=== PATIENT | male | born 1980 | race Caucasian/White ===

== ENCOUNTER → 2017-02-07 | Outpatient (CLI) | payer MEDICARE, MEDICAID ==
[~2017-02-07] MED LIST: IBUP800T PO; MELO-190 PO
[2017-02-07 13:18] LABS: HIV 1&2 ANTIBODY SCREEN Nonreactive (Nonreactive); HIV-1 p24 ANTIGEN Nonreactive (Nonreactive)
== END | disposition home or self-care (01) ==
LOC: STAR 12:05
PROVIDERS: ATTEND Orthopaedic Surgery
DX: M16.12 Unilateral primary osteoarthritis, left hip (principal); R79.89 Other specified abnormal findings of blood chemistry; R79.1 Abnormal coagulation profile
CPT/HCPCS: 36415; 83036; 85610; 85730; 86703; 87081; 87899; G0435

== ENCOUNTER 2017-02-11 07:51 | Inpatient (IN) | payer MEDICARE, MEDICAID ==
[~2017-02-11] VITALS: Ht 190.5 cm; Wt 85.4 kg
[~2017-02-11 07:51] MED LIST changes: +EPINEPHRINE 1 MG/ML, 1ML ONE; +KETOROLAC 60 MG/2 ML ONE; +ROPIvacaine/PF 0.2%, 20 ML ONE; +SODIUM CHLORIDE 0.9% 50 ML ONE; +TRANEXAMIC ACID 100 MG/ML, 10ML ONE; +VANCOMYCIN 1,000 MG ONE
[2017-02-11] MEDS ORDERED: VANCOMYCIN PER PHARMACY MC ONE (08:14)
[2017-02-11] MEDS ORDERED: GABAPENTIN 300 MG CAPSULE PO STA (08:14)
[2017-02-11] MEDS ORDERED: ACETAMINOPHEN 500 MG TABLET PO STA (08:14)
[2017-02-11] MEDS ORDERED: OxyconTIN ER 10 MG TAB.ER PO STA (08:21)
[2017-02-11 08:27] LABS: DAU SCREEN DISCLAIMER
[2017-02-11] MEDS ORDERED: VANCOMYCIN 1,500 MG in SODIUM CHLORIDE 0.9% 250 ML IV ONE (08:30)
[2017-02-11] MEDS ORDERED: LACTATED RINGERS 1,000 ML IV SCH (08:41)
[2017-02-11 08:47] VITALS: BP 114/74
[2017-02-11] MEDS ORDERED: ACETAMINOPHEN 500 MG TABLET ONE (08:57)
[2017-02-11] MEDS ORDERED: GABAPENTIN 300 MG CAPSULE ONE (08:58)
[2017-02-11] MEDS ORDERED: OXYcodone 5 MG/5 ML ORAL.SOL UDC PO PRN (09:00)
[2017-02-11] MEDS ORDERED: HYDROmorphone 1 MG/ML, 1ML IV PRN ×2 (09:00→10:30)
[2017-02-11] MEDS ORDERED: PROMETHAZINE 25 MG/ML, 1ML IV PRN (09:00)
[2017-02-11] MEDS ORDERED: FENTANYL PF 100 MCG/2ML IV PRN (09:00)
[2017-02-11] MEDS ORDERED: hydrALAzine 20 MG/ML, 1ML IV PRN (09:00)
[2017-02-11] MEDS ORDERED: MEPERIDINE/PF 25MG/0.5ML IVPush PRN (09:00)
[2017-02-11] MEDS ORDERED: MIDAZOLAM 1 MG/ML, 2ML IV PRN (09:00)
[2017-02-11] MEDS ORDERED: ONDANSETRON 2MG/ML, 2ML IVPush PRN (09:00)
[2017-02-11] MEDS ORDERED: LABETALOL 5MG/ML, 20ML IV PRN (09:00)
[2017-02-11] MEDS ORDERED: METOCLOPRAMIDE 5 MG/ML, 2ML ONE (10:03)
[2017-02-11] MEDS ORDERED: PROPOFOL 10 MG/ML, 50ML ONE (10:03)
[2017-02-11] MEDS ORDERED: ONDANSETRON 2MG/ML, 2ML ONE (10:03)
[2017-02-11] MEDS ORDERED: DEXAMETHASONE 4 MG/ML, 1ML ONE (10:03)
[2017-02-11] MEDS ORDERED: CEFAZOLIN 1,000 MG ONE (10:03)
[2017-02-11] MEDS ORDERED: ONDANSETRON 4 MG TABLET PO PRN (10:30)
[2017-02-11] MEDS ORDERED: ALUMINUM/MAG/SIMETHICONE 30 ML UDC PO PRN (10:30)
[2017-02-11] MEDS ORDERED: DIAZEPAM 5 MG TABLET PO PRN (10:30)
[2017-02-11] MEDS ORDERED: ONDANSETRON 2MG/ML, 2ML IV PRN (10:30)
[2017-02-11] MEDS ORDERED: DIPHENHYDRAMINE 50 MG CAPSULE PO PRN (10:30)
[2017-02-11] MEDS ORDERED: BISACODYL 10 MG SUPP PR PRN (10:30)
[2017-02-11] MEDS ORDERED: ACETAMINOPHEN 650 MG/20.3 ML UDC PO PRN (10:30)
[2017-02-11] MEDS ORDERED: SENNA/DOCUSATE TABLET PO PRN (10:30)
[2017-02-11] MEDS ORDERED: MAGNESIUM HYDROXIDE 8%, 30ML UDC PO PRN (10:30)
[2017-02-11] MEDS ORDERED: TRANEXAMIC ACID 100 MG/ML, 10ML ONE (12:12)
[2017-02-11] MEDS ORDERED: OXYcodone 5 MG/5 ML ORAL.SOL UDC ONE (12:30)
[2017-02-11 13:50] VITALS: BP 99/62
[2017-02-11] MEDS ORDERED: SCOPOLAMINE PATCH, 1.5MG PATCH.TD72 TD SCH (14:00)
[2017-02-11] MEDS: D5%-0.45NACL+KCL 20MEQ 1,000 ML IV SCH (14:57)
[2017-02-11] MEDS: CEFAZOLIN PMX 1GM/50ML 50 ML IVPB SCH ×2 (14:57→21:54)
[2017-02-11] MEDS: OXYcodone IR 5MG TABLET PO PRN ×2 (16:20→21:25)
[2017-02-11 18:58] VITALS: BP 100/55
[2017-02-11] MEDS ORDERED: VANCOMYCIN PMX 1GM/200ML 200 ML IVPB SCH (20:00)
[2017-02-11] MEDS: DOCUSATE 100 MG CAPSULE PO SCH (20:14)
[2017-02-12 00:07] VITALS: BP 101/53
[2017-02-12] MEDS: OXYcodone IR 5MG TABLET PO PRN ×3 (01:56→12:53)
[2017-02-12 03:54] VITALS: BP 113/57
[2017-02-12 05:20] LABS: HEMATOCRIT 38.6 % (39.2-51.8); HEMOGLOBIN 12.6 g/dL (13.7-18.0)
[2017-02-12] MEDS ORDERED: ASPIRIN 81 MG TABLET EC PO SCH (06:00)
[2017-02-12] MEDS ORDERED: DEXAMETHASONE 4 MG/ML, 1ML IVPush SCH (06:00)
[2017-02-12 07:57] VITALS: BP 111/55
[2017-02-12] MEDS: D5%-0.45NACL+KCL 20MEQ 1,000 ML IV SCH ×2 (08:38)
[2017-02-12] MEDS: DOCUSATE 100 MG CAPSULE PO SCH (08:38)
[2017-02-12] MEDS ORDERED: KETOROLAC 30 MG/1 ML IV SCH (13:00)
[2017-02-12] MEDS ORDERED: OXYC5TAB3 PO (14:24)
[2017-02-12] MEDS ORDERED: ASPI-621 PO ×2 (14:25→15:34)
[2017-02-12] MEDS ORDERED: DOCU-30 PO (14:27)
[2017-02-12] MEDS ORDERED: ONDA4TAB10 PO (14:28)
[2017-02-12] MEDS ORDERED: TRAM50TA2 PO (14:29)
[2017-02-12] MEDS ORDERED: CELE200C PO (14:29)
[2017-02-12] MEDS ORDERED: DIAZ5TAB PO (14:30)
[2017-02-12 14:41] VITALS: BP 134/78
== END 2017-02-12 15:05 | disposition home or self-care (01) | DRG 470 ==
LOC: ORIP 07:51 → 4NOR 13:30
PROVIDERS: ADMIT Orthopaedic Surgery; ATTEND Orthopaedic Surgery
PROC: 0SRB01Z Replacement of Left Hip Joint with Metal Synthetic Substitute, Open Approach (ICD-10-PCS; principal; 2017-02-11 10:15)
DX: M87.852 Other osteonecrosis, left femur (principal); E11.9 Type 2 diabetes mellitus without complications; F10.10 Alcohol abuse, uncomplicated; Y90.9 Presence of alcohol in blood, level not specified; M87.851 Other osteonecrosis, right femur; M89.8X8 Other specified disorders of bone, other site
CPT/HCPCS: 36415; 72170; 80307; 85014; 85018; 86850; 86900; 88304; 88311; C1713; J0171; J0690; J1100; J1885; J2405; J2704; J2795; J3370; C1776; J2765; J3480; J7050; J7120

== ENCOUNTER → 2017-05-17 | Outpatient (CLI) | payer MEDICARE, MEDICAID ==
[~2017-05-17] MED LIST changes: +ASPI-621 PO; +CELE200C PO; +DIAZ5TAB PO; +DOCU-131 PO; -EPINEPHRINE 1 MG/ML, 1ML ONE; +IBUP-1223 PO; -IBUP800T PO; -KETOROLAC 60 MG/2 ML ONE; -MELO-190 PO; +MELO15TA24 PO; +MELO7.5T31 PO; +ONDA4TAB10 PO; +OXYC5CAP2 PO; +OXYC5TAB3 PO; -ROPIvacaine/PF 0.2%, 20 ML ONE; -SODIUM CHLORIDE 0.9% 50 ML ONE; +TRAM50TA2 PO; -TRANEXAMIC ACID 100 MG/ML, 10ML ONE; -VANCOMYCIN 1,000 MG ONE
[2017-05-17 12:45] LABS: HEMATOCRIT 47.8 % (39.2-51.8); HEMOGLOBIN 16.2 g/dL (13.7-18.0); WHITE BLOOD COUNT 10.5 x10^3/uL (3.4-10)
[2017-05-17 12:55] LABS: BLOOD UREA NITROGEN 13 mg/dL (7-18)
[2017-05-17 12:59] LABS: ASPARTATE AMINO TRANSFERASE 11 U/L (15-37)
[2017-05-17 13:08] LABS: HIV 1&2 ANTIBODY SCREEN Nonreactive (Nonreactive); HIV-1 p24 ANTIGEN Nonreactive (Nonreactive)
== END | disposition home or self-care (01) ==
LOC: STAR 11:52
PROVIDERS: ATTEND Orthopaedic Surgery
DX: Z01.818 Encounter for other preprocedural examination (principal); M16.11 Unilateral primary osteoarthritis, right hip; E11.9 Type 2 diabetes mellitus without complications; R79.1 Abnormal coagulation profile
CPT/HCPCS: 36415; 80053; 83036; 85025; 85610; 85730; 86703; 87081; 87899; 93005; G0435

== ENCOUNTER 2017-05-27 05:34 | Inpatient (IN) | payer MEDICARE, MEDICAID ==
[~2017-05-27] VITALS: Ht 188 cm; Wt 80.8 kg
[~2017-05-27 05:34] MED LIST changes: -OXYC5CAP2 PO
[2017-05-27] MEDS ORDERED: VANCOMYCIN PER PHARMACY MC STA (06:05)
[2017-05-27] MEDS ORDERED: LACTATED RINGERS 1,000 ML IV SCH (06:23)
[2017-05-27 06:29] VITALS: BP 106/74
[2017-05-27] MEDS ORDERED: GABAPENTIN 300 MG CAPSULE PO ONE (06:30)
[2017-05-27] MEDS ORDERED: ACETAMINOPHEN 500 MG TABLET PO ONE (06:30)
[2017-05-27] MEDS ORDERED: LIDOCAINE 1%, 2ML SQ PRN (06:30)
[2017-05-27] MEDS ORDERED: OxyconTIN ER 10 MG TAB.ER PO ONE (06:30)
[2017-05-27] MEDS ORDERED: VANCOMYCIN 1,600 MG in SODIUM CHLORIDE 0.9% 250 ML IV ONE (06:30)
[2017-05-27] MEDS ORDERED: KETOROLAC 60 MG/2 ML ONE (06:31)
[2017-05-27] MEDS ORDERED: TRANEXAMIC ACID 100 MG/ML, 10ML ONE ×4 (06:31→06:32)
[2017-05-27] MEDS ORDERED: VANCOMYCIN 1,000 MG ONE (06:32)
[2017-05-27] MEDS ORDERED: SODIUM CHLORIDE 0.9% 100 ML ONE (06:32)
[2017-05-27] MEDS ORDERED: ROPivacaine/PF 0.2%, 10 ML ONE (06:32)
[2017-05-27] MEDS ORDERED: EPINEPHRINE 1 MG/ML, 1ML ONE (06:33)
[2017-05-27 06:44] LABS: DAU SCREEN DISCLAIMER
[2017-05-27] MEDS ORDERED: MIDAZOLAM 1 MG/ML, 2ML ONE (07:08)
[2017-05-27] MEDS ORDERED: SUFentanil 50 MCG/ML, 1ML ONE (07:11)
[2017-05-27] MEDS ORDERED: PHENYLEPHRINE 10 MG/ML ONE (07:11)
[2017-05-27] MEDS ORDERED: PROPOFOL 10 MG/ML, 20ML ONE (07:11)
[2017-05-27] MEDS ORDERED: ROCURONIUM 10 MG/ML,10ML ONE (07:11)
[2017-05-27] MEDS ORDERED: CEFAZOLIN 1,000 MG ONE ×2 (07:12)
[2017-05-27] MEDS ORDERED: KETAMINE 10 MG/ML, 20ML ONE (07:36)
[2017-05-27] MEDS ORDERED: ALBUTEROL HFA 90 MCG/SPRAY ONE (07:44)
[2017-05-27] MEDS ORDERED: DEXAMETHASONE 4 MG/ML, 1ML ONE ×2 (07:46)
[2017-05-27] MEDS ORDERED: LORazepam 2 MG/ML, 1ML IVPush PRN (08:00)
[2017-05-27] MEDS ORDERED: MEPERIDINE/PF 25MG/0.5ML IVPush PRN (08:00)
[2017-05-27] MEDS ORDERED: hydrALAzine 20 MG/ML, 1ML IV PRN (08:00)
[2017-05-27] MEDS ORDERED: HYDROmorphone 1 MG/ML, 1ML IV PRN ×2 (08:00→09:30)
[2017-05-27] MEDS ORDERED: OXYcodone 5 MG/5 ML ORAL.SOL UDC PO PRN (08:00)
[2017-05-27] MEDS ORDERED: ACETAMINOPHEN 325 MG TABLET PO PRN (08:00)
[2017-05-27] MEDS ORDERED: PROMETHAZINE 25 MG/ML, 1ML IV PRN (08:00)
[2017-05-27] MEDS ORDERED: FENTANYL PF 100 MCG/2ML IV PRN (08:00)
[2017-05-27] MEDS ORDERED: ONDANSETRON 2MG/ML, 2ML IVPush PRN (08:00)
[2017-05-27] MEDS ORDERED: ONDANSETRON 2MG/ML, 2ML ONE ×2 (08:20)
[2017-05-27] MEDS ORDERED: SENNA/DOCUSATE TABLET PO PRN (09:30)
[2017-05-27] MEDS ORDERED: MAGNESIUM HYDROXIDE 8%, 30ML UDC PO PRN (09:30)
[2017-05-27] MEDS ORDERED: DIPHENHYDRAMINE 25 MG CAPSULE PO PRN (09:30)
[2017-05-27] MEDS ORDERED: ONDANSETRON 4 MG TABLET PO PRN (09:30)
[2017-05-27] MEDS ORDERED: ALUMINUM/MAG/SIMETHICONE 30 ML UDC PO PRN (09:30)
[2017-05-27] MEDS ORDERED: ONDANSETRON 2MG/ML, 2ML IV PRN (09:30)
[2017-05-27] MEDS ORDERED: TRANEXAMIC ACID 1,000 MG in SODIUM CHLORIDE 0.9% 100 ML IVPB ONE (09:30)
[2017-05-27] MEDS ORDERED: ACETAMINOPHEN 650 MG/20.3 ML UDC PO PRN (09:30)
[2017-05-27] MEDS ORDERED: ACETAMINOPHEN 650 MG/20.3 ML UDC ONE (09:58)
[2017-05-27] MEDS ORDERED: HYDROmorphone 1 MG/ML, 1ML ONE (09:59)
[2017-05-27] MEDS ORDERED: OXYcodone 5 MG/5 ML ORAL.SOL UDC ONE (09:59)
[2017-05-27] MEDS ORDERED: PROMETHAZINE 25 MG/ML, 1ML ONE (10:01)
[2017-05-27 11:25] VITALS: BP 118/69
[2017-05-27] MEDS: D5%-0.45NACL+KCL 20MEQ 1,000 ML IV SCH ×2 (11:59→21:30)
[2017-05-27] MEDS: OXYcodone IR 5MG TABLET PO PRN ×3 (14:06→22:14)
[2017-05-27 15:00] VITALS: BP 114/70
[2017-05-27] MEDS: CEFAZOLIN PMX 1GM/50ML 50 ML IVPB SCH ×2 (15:04→22:41)
[2017-05-27 15:45] VITALS: BP 101/63
[2017-05-27] MEDS: ASPIRIN 81 MG TABLET EC PO SCH (18:22)
[2017-05-27 18:25] VITALS: BP 99/68
[2017-05-27] MEDS: DOCUSATE 100 MG CAPSULE PO SCH (20:04)
[2017-05-27] MEDS: DIAZEPAM 5 MG TABLET PO PRN (22:18)
[2017-05-27 23:34] VITALS: BP 103/62
[2017-05-28] MEDS: OXYcodone IR 5MG TABLET PO PRN ×4 (02:22→13:20)
[2017-05-28] MEDS: DIAZEPAM 5 MG TABLET PO PRN (02:22)
[2017-05-28 03:07] VITALS: BP 91/55
[2017-05-28 05:01] LABS: HEMATOCRIT 38.1 % (39.2-51.8); HEMOGLOBIN 12.9 g/dL (13.7-18.0)
[2017-05-28] MEDS: ASPIRIN 81 MG TABLET EC PO SCH (05:47)
[2017-05-28] MEDS ORDERED: DEXAMETHASONE 4 MG/ML, 1ML IVPush SCH (06:00)
[2017-05-28 07:00] VITALS: BP 116/66
[2017-05-28] MEDS: D5%-0.45NACL+KCL 20MEQ 1,000 ML IV SCH ×2 (07:05→16:30)
[2017-05-28] MEDS: DOCUSATE 100 MG CAPSULE PO SCH (08:34)
[2017-05-28] MEDS ORDERED: TAMSULOSIN 0.4 MG CAP.ER.24H PO SCH (09:00)
[2017-05-28] MEDS ORDERED: OXYC5CAP2 PO (09:05)
[2017-05-28] MEDS ORDERED: ASPI-621 PO (09:06)
[2017-05-28] MEDS ORDERED: DOCU-131 PO (09:08)
[2017-05-28] MEDS ORDERED: ONDA4TAB10 PO (09:09)
[2017-05-28] MEDS ORDERED: MELO7.5T31 PO (09:09)
[2017-05-28] MEDS ORDERED: TRAM50TA2 PO (09:14)
[2017-05-28] MEDS ORDERED: DIAZ5TAB PO (09:15)
[2017-05-28] MEDS ORDERED: KETOROLAC 30 MG/1 ML IV SCH (09:30)
[2017-05-28 14:15] VITALS: BP 126/65
== END 2017-05-28 17:05 | disposition home or self-care (01) | DRG 470 ==
LOC: ORIP 05:34 → 4NOR 11:20
PROVIDERS: ADMIT Orthopaedic Surgery; ATTEND Orthopaedic Surgery
PROC: 0SR903A Replacement of Right Hip Joint with Ceramic Synthetic Substitute, Uncemented, Open Approach (ICD-10-PCS; principal; 2017-05-27 07:30)
DX: M87.851 Other osteonecrosis, right femur (principal); Z96.642 Presence of left artificial hip joint
CPT/HCPCS: 36415; 72170; 80307; 85014; 85018; 86850; 86900; C1713; J0171; J0690; J1100; J1170; J1885; J2250; J2405; J2550; J2704; J2795; J3370; C1776; G0479; J2370; J3480; J7050; J7120

== ENCOUNTER 2018-04-03 16:53 | Emergency (ER) | payer MEDICARE, MEDICAID ==
[~2018-04-03] VITALS: Ht 185.4 cm; Wt 84.0 kg
[~2018-04-03 16:53] MED LIST changes: +OXYC5CAP2 PO
[2018-04-03 17:04] VITALS: BP 115/73
[2018-04-03] MEDS ORDERED: IBUPROFEN 200 MG TABLET ONE (17:20)
[2018-04-03] MEDS ORDERED: PLEASE ENTER HEIGHT AND WEIGHT MC SCH (17:30)
[2018-04-03] MEDS ORDERED: IBUPROFEN 200 MG TABLET PO ONE (17:30)
== END 2018-04-03 17:42 | disposition home or self-care (01) ==
LOC: ED 17:15
DX: K04.7 Periapical abscess without sinus (principal); K02.9 Dental caries, unspecified; F17.200 Nicotine dependence, unspecified, uncomplicated
CPT/HCPCS: 99283